=== PATIENT | male | born 1975 | race Caucasian/White ===

== ENCOUNTER 2018-03-25 11:40 | Emergency (ER) | payer OTHER ==
[~2018-03-25] VITALS: Ht 190.5 cm; Wt 90.7 kg
[2018-03-25 11:50] VITALS: BP_SYST 149
[2018-03-25 13:05] VITALS: BP_SYST 132
== END 2018-03-25 13:05 | disposition home or self-care (01) ==
LOC: SED 11:40
DX: J20.8 Acute bronchitis due to other specified organisms (principal); B97.89 Other viral agents as the cause of diseases classified elsewhere; E78.00 Pure hypercholesterolemia, unspecified; F17.210 Nicotine dependence, cigarettes, uncomplicated; R03.0 Elevated blood-pressure reading, without diagnosis of hypertension; Z88.1 Allergy status to other antibiotic agents; Z88.6 Allergy status to analgesic agent; Z90.49 Acquired absence of other specified parts of digestive tract; Z86.79 Personal history of other diseases of the circulatory system; Z71.6 Tobacco abuse counseling
CPT/HCPCS: 71045; 99283